=== PATIENT | male | born 1950 | race Caucasian/White ===

== ENCOUNTER 2023-11-20 01:00 | Emergency (ER) | payer MEDICARE, MEDICAID ==
[~2023-11-20] VITALS: Ht 167.6 cm; Wt 101.3 kg
[2023-11-20] MEDS ORDERED: IBUPROFEN 600MG TAB PO ONE (07:35)
[2023-11-20] MEDS ORDERED: IBUP-1022 PO ×2 (07:35→08:53)
[2023-11-20 07:51] VITALS: O2SAT 97
[2023-11-20 07:57] VITALS: BP 158/80; TEMP 99.2
== END 2023-11-20 07:59 | disposition home or self-care (01) ==
LOC: M ED 01:00
DX: S63.502A Unspecified sprain of left wrist, initial encounter (principal); W06.XXXA Fall from bed, initial encounter; Y92.009 Unspecified place in unspecified non-institutional (private) residence as the place of occurrence of the external cause; Y93.89 Activity, other specified; Y99.8 Other external cause status; M19.90 Unspecified osteoarthritis, unspecified site

== ENCOUNTER → 2024-10-05 | Outpatient (CLI) | payer MEDICARE, MEDICAID ==
[~2024-10-05] MED LIST: IBUP-1022 PO
[2024-10-05 14:15] LABS: BASO # 0.1 10^3/uL (0.0-0.2); BASO % 0.7 % (0.0-1.0); EOS # 0.4 10^3/uL (0.0-0.5); EOS % 3.1 % (0.0-3.0); HEMATOCRIT 45.5 % (42.0-52.0); HEMOGLOBIN 15.5 g/dl (13.5-17.5); LYMPH # 3.9 10^3/uL (1.5-5.0); LYMPH % 32.5 % (24.0-44.0); MEAN CORPUSCULAR HEMOGLOBIN 29.8 pg (27.0-33.0); MEAN CORPUSCULAR HGB CONC 34.1 g/dl (32.0-36.5); MEAN CORPUSCULAR VOLUME 87.5 fl (80.0-96.0); MONO # 0.8 10^3/uL (0.0-0.8); MONO % 6.5 % (2.0-8.0); NEUTROPHILS # 6.8 10^3/uL (1.5-8.5); PLATELET COUNT, AUTOMATED 209 10^3/uL (150-450)
[2024-10-05 14:27] LABS: PSA SCREENING 2.11 NG/ML (< 4.00)
[2024-10-05 14:31] LABS: FREE T4 1.29 NG/DL (0.89-1.76); THYROID STIMULATING HORMONE 3.245 uIU/ML (0.55-4.78)
[2024-10-05 14:33] LABS: ALBUMIN 3.9 G/DL (3.2-5.2); ALKALINE PHOSPHATASE 82 U/L (40-129); ALT/SGPT 13 U/L (7.0-40); APPEARANCE, URINE HAZY (CLEAR); AST/SGOT 14 U/L (<34); BACTERIA, URINE AUTO NEGATIVE (NEGATIVE); BILIRUBIN, URINE AUTO NEGATIVE (NEGATIVE); BILIRUBIN,TOTAL 0.6 MG/DL (0.3-1.2); BLOOD UREA NITROGEN 24 MG/DL (9-23); BLOOD, URINE BLOOD NEGATIVE (NEGATIVE); CALCIUM LEVEL 9.6 MG/DL (8.3-10.6); CARBON DIOXIDE LEVEL 27 MMOL/L (20-31); CHLORIDE LEVEL 107 MMOL/L (98-107); CHOLESTEROL LEVEL 209 MG/DL (<200); CHOLESTEROL RISK RATIO 6.69 (<5); COLOR, URINE YELLOW (YELLOW); CREATININE FOR GFR 1.01 MG/DL (0.70-1.30); GLOMERULAR FILTRATION RATE > 60.0 (>42); GLUCOSE, FASTING 126 MG/DL (74-106); GLUCOSE, URINE (UA) AUTO NEGATIVE (NEGATIVE); HDL CHOLESTEROL 31.2 MG/DL (>40); KETONE, URINE AUTO NEGATIVE (NEGATIVE); LEUKOCYTE ESTERASE, URINE AUTO NEGATIVE (NEGATIVE); MUCUS, URINE SMALL (NEGATIVE); NITRITE, URINE AUTO NEGATIVE (NEGATIVE); NON-HDL-C 177.8 MG/DL; POTASSIUM SERUM 4.2 MMOL/L (3.5-5.1); PROTEIN, URINE AUTO 1+ mg/dL (NEGATIVE); RBC, URINE AUTO 1 /HPF (0-3); SODIUM LEVEL 142 MMOL/L (136-145); SPECIFIC GRAVITY URINE AUTO 1.028 (1.002-1.035); SQUAMOUS EPITHELIAL CELL UR AU 0 /HPF (0-6); TOTAL PROTEIN 7.3 G/DL (5.7-8.2); TRIGLYCERIDES LEVEL 149 MG/DL (<150); UROBILINOGEN, URINE AUTO 0.2 mg/dL (0.0-2.0); WBC, URINE AUTO 2 /HPF (0-3)
[2024-10-05 14:42] LABS: HEMOGLOBIN A1c 6.1 % (4.0-6.0)
[2024-10-05 14:48] LABS: CREATININE, URINE 283.2 MG/DL; MAU/CREAT RATIO 58.6 MCG/MG (0.0-30.0)
== END ==
LOC: M PLALAB 10:42
PROVIDERS: ATTEND Student in an Organized Health Care Education/Training Program
DX: E11.9 Type 2 diabetes mellitus without complications (principal); Z76.89 Persons encountering health services in other specified circumstances; I10 Essential (primary) hypertension; Z87.448 Personal history of other diseases of urinary system; Z83.49 Family history of other endocrine, nutritional and metabolic diseases; Z12.5 Encounter for screening for malignant neoplasm of prostate
CPT/HCPCS: 36415; 80053; 80061; 81001; 82043; 83036; 84439; 84443; 85025; G0103

== ENCOUNTER 2024-12-13 14:12 | Emergency (ER) | payer MEDICARE, MEDICAID ==
[~2024-12-13] VITALS: Ht 167.6 cm; Wt 103.8 kg
[2024-12-13 16:55] VITALS: BP 163/84; TEMP 98.9; O2SAT 96
== END 2024-12-13 17:16 | disposition home or self-care (01) ==
LOC: M ED 14:12
DX: S80.02XA Contusion of left knee, initial encounter (principal); S20.212A Contusion of left front wall of thorax, initial encounter; Y92.019 Unspecified place in single-family (private) house as the place of occurrence of the external cause; Y93.9 Activity, unspecified; Y99.9 Unspecified external cause status; I10 Essential (primary) hypertension; Z79.1 Long term (current) use of non-steroidal anti-inflammatories (NSAID)

== ENCOUNTER → 2024-12-31 | Outpatient (CLI) | payer MEDICARE, MEDICAID ==
[2024-12-31 19:44] LABS: HEMOGLOBIN A1c 6.2 % (4.0-6.0)
== END ==
LOC: M PLALAB 15:39
PROVIDERS: ATTEND Physician Assistant
DX: M17.32 Unilateral post-traumatic osteoarthritis, left knee (principal)